=== PATIENT | male | born 1955 | race Caucasian/White ===

== ENCOUNTER 2017-10-02 20:35 | Inpatient (IN) | payer SELFPAY ==
[2017-10-02 20:44] VITALS: BP 233/128; PULSE 76; RESP 16; TEMP 98.1; O2SAT 95
[2017-10-02 20:48] VITALS: BP 233/128; PULSE 75; RESP 16; O2SAT 99
[2017-10-02] MEDS ORDERED: SODIUM CHLORIDE 0.9% FLUSH 10 ML FLUSH IVF PRN (21:45)
[2017-10-02] MEDS ORDERED: cloNIDine HCL 0.1 MG TAB PO ONE (21:45)
[2017-10-02 21:54] VITALS: O2SAT 99
[2017-10-02] MEDS ORDERED: MORPHINE SULFATE 2 MG/ML INJ IV PUSH ONE (22:00)
--- NOTE | 2017-10-02 22:07 | PD ---
HPI Chief Complaint: Headache Time Seen by Provider: 21:21 Travel History International Travel<30 days: No Contact w/Intl Traveler<30days: No Traveled to known affect area: No History of Present Illness HPI 62-year-old otherwise healthy male presents to the emergency room for evaluation of headache that started earlier today. Patient states he believes he may have had food poisoning because he had a can of [place] sausages and then developed headache, nausea, and vomiting. He states headache started fairly quickly. States it is localized to the middle of his head. He reports history of headaches. He had a headache as severe as this one is today one month ago. Patient denies chest pain, shortness breath, abdominal pain, or photophobia. He is not currently nauseous. Headache is worse when he moves his head certain directions. He took ibuprofen with moderate relief in symptoms. He is not prescribed any medications and has not seen a doctor in 11 years. PFSH Past Medical History Diminished Hearing: No Migraines: Yes Tetanus Vaccination: < 5 Years Influenza Vaccination: No ?: Not Past Surgical History Surgical History: No Previous Surgery Social History Alcohol Use: Yes (occasional) Tobacco Use: No Substance Use: No Allergies-Medications (Allergen,Severity, Reaction): Coded Allergies: No Known Allergies (Unverified , 10/02/17) Reported Meds & Prescriptions Reported Meds & Active Scripts Active No Active Prescriptions or Reported Medications Review of Systems Except as stated in HPI: all other systems reviewed are Neg Physical Exam Narrative GENERAL: Well-nourished, well-developed male in no acute distress. Afebrile. Ambulatory. Interacting appropriately and smiling. SKIN: Focused skin assessment warm/dry. HEAD: Normocephalic. EYES: PERRL, EOMI, no discharge or injection. No scleral icterus. NECK: Supple, trachea midline. No JVD or lymphadenopathy. CARDIOVASCULAR: Regular rate and rhythm without murmurs, gallops, or rubs. RESPIRATORY: Breath sounds equal bilaterally. No accessory muscle use. GASTROINTESTINAL: Abdomen soft, non-tender, nondistended. NEUROLOGICAL: Awake and alert. Cranial nerves II through XII intact. Motor and sensory grossly within normal limits. Five out of 5 muscle strength in all muscle groups. Normal speech. No pronator drift in upper or lower extremities. Data Data Last Documented VS Vital Signs Date Time Temp Pulse Resp B/P (MAP) Pulse Ox O2 Delivery O2 Flow Rate FiO2 10/02/17 21:54 99 Room Air 10/02/17 20:48 75 16 10/02/17 20:44 98.1 Orders Orders Prothrombin Time / Inr (Pt) (10/02/17 21:40) Act Partial Throm Time (Ptt) (10/02/17 21:40) Complete Blood Count With Diff (10/02/17 21:40) Comprehensive Metabolic Panel (10/02/17 21:40) Ct Brain W/O Iv Contrast(Rout) (10/02/17 21:40) Ecg Monitoring (10/02/17 21:40) Iv Access Insert/Monitor (10/02/17 21:40) Oximetry (10/02/17 21:40) Sodium Chloride 0.9% Flush (Ns Flush) (10/02/17 21:45) Clonidine (Catapres) (10/02/17 21:45) Morphine Inj (Morphine Inj) (10/02/17 22:00) Labs Laboratory Tests Test 10/02/17 21:40 White Blood Count 10.2 TH/MM3 Red Blood Count 4.92 MIL/MM3 Hemoglobin 15.0 GM/DL Hematocrit 44.4 % Mean Corpuscular Volume 90.2 FL Mean Corpuscular Hemoglobin 30.6 PG Mean Corpuscular Hemoglobin Concent 33.9 % Red Cell Distribution Width 12.9 % Platelet Count 183 TH/MM3 Mean Platelet Volume 10.6 FL Neutrophils (%) (Auto) 70.2 % Lymphocytes (%) (Auto) 19.9 % Monocytes (%) (Auto) 8.1 % Eosinophils (%) (Auto) 0.8 % Basophils (%) (Auto) 1.0 % Neutrophils # (Auto) 7.2 TH/MM3 Lymphocytes # (Auto) 2.0 TH/MM3 Monocytes # (Auto) 0.8 TH/MM3 Eosinophils # (Auto) 0.1 TH/MM3 Basophils # (Auto) 0.1 TH/MM3 CBC Comment DIFF FINAL Differential Comment Prothrombin Time 10.4 SEC Prothromb Time International Ratio 1.0 RATIO Activated Partial Thromboplast Time 24.7 SEC Blood Urea Nitrogen 11 MG/DL Creatinine 0.76 MG/DL Random Glucose 88 MG/DL Total Protein 7.3 GM/DL Albumin 3.8 GM/DL Calcium Level 8.3 MG/DL Alkaline Phosphatase 64 U/L Aspartate Amino Transf (AST/SGOT) 23 U/L Alanine Aminotransferase (ALT/SGPT) 37 U/L Total Bilirubin 1.0 MG/DL Sodium Level 137 MEQ/L Potassium Level 3.9 MEQ/L Chloride Level 105 MEQ/L Carbon Dioxide Level 25.5 MEQ/L Anion Gap 7 MEQ/L Estimat Glomerular Filtration Rate 105 ML/MIN MDM Medical Decision Making Medical Screen Exam Complete: Yes Emergency Medical Condition: Yes Medical Record Reviewed: Yes Differential Diagnosis headache, ICH, hypertensive emergency, hypertensive urgency Narrative Course 62-year-old otherwise healthy male presents to the emergency room for evaluation of moderate to severe headache in the middle of his head that started earlier today. He had associated nausea with one episode of vomiting. Denies chest pain, nausea, or abdominal pain at this time. IV access established and basic labs obtained. Physical exam is reassuring. There are no focal neurological deficits. No pronator drift. Patient is resting comfortably, interacting appropriately. Smiling. Patient was noted to be markedly hypertensive on arrival at 233/128. He was given 0.1 clonidine and pain medication. States he has significant improvement in symptoms. Blood pressure came down to 173/88. CBC and CMP are unremarkable. CT of the brain ordered and pending. Patient signed out to nighttime provider. Diagnosis Primary Impression: Hypertensive emergency Scripts No Active Prescriptions or Reported Meds Condition: Stable Olive Colón Oct 02, 2017 22:07
[2017-10-02 22:18] LABS: AUTOMATED NEUTROPHIL # 7.2 TH/MM3 (1.8-7.7); BASOPHIL # 0.1 TH/MM3 (0-0.2); EOSINOPHIL # 0.1 TH/MM3 (0-0.4); EOSINOPHIL % 0.8 % (0.0-4.0); HEMATOCRIT 44.4 % (39.0-51.0); HEMO FLAGS DIFF FINAL; LYMPH % 19.9 % (9.0-44.0); MEAN CELL VOLUME 90.2 FL (80.0-100.0); MEAN CORPUSCULAR HEMOGLOBIN 30.6 PG (27.0-34.0); MEAN CORPUSCULAR HGB CONC 33.9 % (32.0-36.0); MONO % 8.1 % (0.0-8.0); NEUT % 70.2 % (16.0-70.0); PLATELET COUNT 183 TH/MM3 (150-450); RED BLOOD COUNT 4.92 MIL/MM3 (4.50-5.90); RED CELL DISTRIBUTION WIDTH 12.9 % (11.6-17.2); WHITE BLOOD COUNT 10.2 TH/MM3 (4.0-11.0)
[2017-10-02 22:33] LABS: ALT (GPT) 37 U/L (12-78); ANION GAP 7 MEQ/L (5-15); AST (GOT) 23 U/L (15-37); BICARBONATE 25.5 MEQ/L (21.0-32.0); BLOOD UREA NITROGEN 11 MG/DL (7-18); CHLORIDE 105 MEQ/L (98-107); GLOMERULAR FILTRATION RATE 105 ML/MIN (>89); POTASSIUM 3.9 MEQ/L (3.5-5.1); SODIUM (NA) 137 MEQ/L (136-145)
[2017-10-02 22:34] LABS: APTT (PATIENT) 24.7 SEC (24.3-30.1); PROTHROMBIN TIME - PATIENT 10.4 SEC (9.8-11.6)
[2017-10-02 22:35] LABS: ALKALINE PHOSPHATASE 64 U/L (45-117)
[2017-10-02 23:08] VITALS: BP 162/72; PULSE 78
--- NOTE | 2017-10-02 23:56 | RADRPT ---
EXAM DATE/TIME: 10/02/2017 23:33 [facility] COMPARISON: No previous studies available for comparison. INDICATIONS : Cephalgia. RADIATION DOSE: 56.35 CTDIvol (mGy) MEDICAL HISTORY : None SURGICAL HISTORY : None. ENCOUNTER: Initial ACUITY: 1 day PAIN SCALE: 5/10 LOCATION: Bilateral cranial TECHNIQUE: Multiple contiguous axial images were obtained of the head. Using automated exposure control and adj ustment of the mA and/or kV according to patient size, radiation dose was kept as low as reasonably a chievable to obtain optimal diagnostic quality images. DICOM format image data is available electro nically for review and comparison. FINDINGS: CEREBRUM: The ventricles are normal for age. There is a patent cavum septum pellucidum. No evidence of midline shift, mass lesion, hemorrhage or acute infarction. No extra-axial fluid collections are seen. POSTERIOR FOSSA: The cerebellum and brainstem are intact. The 4th ventricle is midline. The cerebellopontine angle i s unremarkable. EXTRACRANIAL: The visualized portion of the orbits is intact. SKULL: The calvaria is intact. No evidence of skull fracture. CONCLUSION: No acute disease. Mor Arevalo MD on October 02, 2017 at 23:54 Board Certified Radiologist. This report was verified electronically.
[2017-10-03] VITALS (10 sets, daily range): BP systolic 150–212; BP diastolic 82–116; PULSE 60–72; RESP 18–20; TEMP 97.6–98.4; O2SAT 96–98
--- NOTE | 2017-10-03 00:17 | PD ---
Physical Exam Narrative General: The patient is a well-developed well-nourished male in no acute distress. Head and Neck exam: Head is normocephalic atraumatic. Eyes: EOMI, pupils are equal round and reactive to light. Nose: Midline septum with pink mucous membranes Mouth: Dentition unremarkable. Moist mucus membranes. Posterior oropharynx is not erythematous. No tonsillar hypertrophy. Uvula midline. Airway patent. Neck: No palpable lymphadenopathy. No nuchal rigidity. No thyromegaly. Negative Brudzinski, negative Kernig sign. Cardiovascular: Regular rate and rhythm with a 2/6 systolic murmur, no gallops or rubs. No pulse deficit to the extremities on simultaneous auscultation and palpation of his radial artery. Lungs: Clear to auscultation bilaterally. No wheezes, rhonchi, or rales. Abdomen: Soft, without tenderness to palpation in all 4 quadrants of the abdomen. No guarding, rebound, or rigidity. Normal bowel sounds are audible. No tenderness on palpation of McBurney's point. Negative Martinez's sign. Extremities: No clubbing, cyanosis, or edema. 2+ pulses in all 4 extremities. No calf tenderness on palpation. Back: No spinous process tenderness to palpation. No costovertebral angle tenderness to palpation. Neurologic Exam: Cranial nerves 2-12 were intact on exam. Strength is 5/5 in all 4 extremities. No sensory deficits noted. Skin Exam: No rash noted. Intact skin that is warm and dry. Data Data Last Documented VS Vital Signs Date Time Temp Pulse Resp B/P (MAP) Pulse Ox O2 Delivery O2 Flow Rate FiO2 10/02/17 23:08 78 162/72 (102) 10/02/17 21:54 99 Room Air 10/02/17 20:48 16 10/02/17 20:44 98.1 Orders Orders Prothrombin Time / Inr (Pt) (10/02/17 21:40) Act Partial Throm Time (Ptt) (10/02/17 21:40) Complete Blood Count With Diff (10/02/17 21:40) Comprehensive Metabolic Panel (10/02/17 21:40) Ct Brain W/O Iv Contrast(Rout) (10/02/17 21:40) Ecg Monitoring (10/02/17 21:40) Iv Access Insert/Monitor (10/02/17 21:40) Oximetry (10/02/17 21:40) Sodium Chloride 0.9% Flush (Ns Flush) (10/02/17 21:45) Clonidine (Catapres) (10/02/17 21:45) Morphine Inj (Morphine Inj) (10/02/17 22:00) Sodium Chlor 0.9% 1000 Ml Inj (Ns 1000 M (10/03/17 00:30) Ondansetron Inj (Zofran Inj) (10/03/17 00:30) Electrocardiogram (10/03/17 00:39) Creatine Kinase (Cpk) (10/03/17 00:39) Ckmb (Isoenzyme) Profile (10/03/17 00:39) Troponin I (10/03/17 00:39) B-Type Natriuretic Peptide (10/03/17 00:39) Chest, Single Ap (10/03/17 00:39) Sodium Chlorid 0.9% 500 Ml Inj (Ns 500 M (10/03/17 00:45) Labetalol Inj (Trandate Inj) (10/03/17 00:45) Admit Order (Ed Use Only) (10/03/17 00:45) CKMB (10/02/17 21:40) CKMB% (10/02/17 21:40) Labs Laboratory Tests Test 10/02/17 21:40 White Blood Count 10.2 TH/MM3 Red Blood Count 4.92 MIL/MM3 Hemoglobin 15.0 GM/DL Hematocrit 44.4 % Mean Corpuscular Volume 90.2 FL Mean Corpuscular Hemoglobin 30.6 PG Mean Corpuscular Hemoglobin Concent 33.9 % Red Cell Distribution Width 12.9 % Platelet Count 183 TH/MM3 Mean Platelet Volume 10.6 FL Neutrophils (%) (Auto) 70.2 % Lymphocytes (%) (Auto) 19.9 % Monocytes (%) (Auto) 8.1 % Eosinophils (%) (Auto) 0.8 % Basophils (%) (Auto) 1.0 % Neutrophils # (Auto) 7.2 TH/MM3 Lymphocytes # (Auto) 2.0 TH/MM3 Monocytes # (Auto) 0.8 TH/MM3 Eosinophils # (Auto) 0.1 TH/MM3 Basophils # (Auto) 0.1 TH/MM3 CBC Comment DIFF FINAL Differential Comment Prothrombin Time 10.4 SEC Prothromb Time International Ratio 1.0 RATIO Activated Partial Thromboplast Time 24.7 SEC Blood Urea Nitrogen 11 MG/DL Creatinine 0.76 MG/DL Random Glucose 88 MG/DL Total Protein 7.3 GM/DL Albumin 3.8 GM/DL Calcium Level 8.3 MG/DL Alkaline Phosphatase 64 U/L Aspartate Amino Transf (AST/SGOT) 23 U/L Alanine Aminotransferase (ALT/SGPT) 37 U/L Total Bilirubin 1.0 MG/DL Sodium Level 137 MEQ/L Potassium Level 3.9 MEQ/L Chloride Level 105 MEQ/L Carbon Dioxide Level 25.5 MEQ/L Anion Gap 7 MEQ/L Estimat Glomerular Filtration Rate 105 ML/MIN Total Creatine Kinase 185 U/L Troponin I LESS THAN 0.02 NG/ML MDM Medical Record Reviewed: Yes Supervised Visit with ROBINSON: No Interpretation(s) Last Impressions Chest X-Ray 10/03/17 0039 Signed Impressions: Service Date/Time: Tuesday, October 03, 2017 00:49 - CONCLUSION: No acute disease. Mor Arevalo MD Head CT 10/02/170 Signed Impressions: Service Date/Time: Monday, October 02, 2017 23:33 - CONCLUSION: No acute disease. Mor Arevalo MD Narrative Course During the course of the patients emergency department visit, the patients history, examination, and differential diagnosis were reviewed with the patient. The patient was placed on a manager cardiac with oximetry and frequent blood pressure monitoring. The patient had IV access obtained and blood work sent for analysis. The patient was initially evaluated by Olive, the physician architectural administrative assistant. Please see her complete history and physical. The patient's case was checked out to me at the conclusion of her shift pending CT scan results. The patient reports a history of headache that has been coming and going for the last month. He reports that it was severe one month ago and he thought it was related to sinus pressure. He reports that intermittently since then he has been taking [id number] sinus medicine approximate twice a week. He denies having any purulent nasal discharge. He denies having any fevers or chills. He denies having any neck pain. The patient reports that earlier today he began to feel poorly, associated with a headache over the top of his head. He reports that he felt nausea and then vomited. He reports that he felt confused. He reports that he also had generalized weakness. His girlfriend then called ambulance services for him. The patient arrives with a systolic blood pressure in the 230s. The patient reports that since summer he has had dyspnea on exertion. He denies any known prior history of heart murmur. The patient was initially provided morphine for pain 2 mg IV, clonidine 0.1 by mouth 1. The patients laboratory studies were reviewed and remarkable for a white count of 10.2, hemoglobin 15, platelets 183 was 70.2 neutrophils, monocytes 8.1. CMP is remarkable for a calcium of 8.3, PT PTT within normal limits. Radiology studies were reviewed and remarkable for a CT scan of the brain shows no acute abnormality. The patient continued to be hypertensive, initially his blood pressure did go down to the 160s, however it began to rebound into the 170s. The patient was given labetalol 10 mg IV. Given the patient's new heart murmur noted on examination and reported dyspnea on exertion since summer time, the patient had cardiac enzymes ordered, ECG ordered and a chest x-ray ordered. An ECG shows a sinus rhythm of 61, borderline left axis deviation, left ventricular hypertrophy by voltage, QRS duration is 91 ms, QTC [address] segment elevation. Chest x-ray showed no acute cardiopulmonary disease , CPK within normal limits at 185, troponin I less than 0.02. The patient will be admitted to the hospital for Hypertensive urgency, new cardiac murmur, Dyspnea on exertion. The patients results were discussed with the patient, including the plan of care. I explained that further testing and/ or monitoring is indicated based on the patients history, examination, and/ or laboratory findings. Therefore, I recommended admission for additional evaluation. The patient expressed understanding and was agreeable with this plan. The patient was admitted to the hospital in stable condition and sent to a bed under the care of [facility] service. Physician Communication Physician Communication The patient's case including history, pertinent physical examination findings, and laboratory studies were discussed with Dr. Beach. It was agreed that the patient would be admitted to the [facility] service. Diagnosis Primary Impression: Hypertensive encephalopathy Additional Impressions: Newly recognized heart murmur Uncontrolled hypertension Admitting Information Admitting Physician Requests: Admit Scripts No Active Prescriptions or Reported Meds Condition: Stable Flower Joyce MD Oct 03, 2017 00:17
[2017-10-03] MEDS ORDERED: ONDANSETRON HCL 4 MG/2 ML VIAL IV ONE (00:30)
[2017-10-03] MEDS ORDERED: SODIUM CHLOR 0.9% 1000 ML INJ 1,000 ML IV ONE (00:30)
[2017-10-03] MEDS ORDERED: SODIUM CHLORID 0.9% 500 ML INJ 500 ML IV ONE (00:45)
[2017-10-03] MEDS ORDERED: LABETALOL HCL 100 MG/20 ML VIAL IV PUSH ONE (00:45)
--- NOTE | 2017-10-03 01:05 | RADRPT ---
EXAM DATE/TIME: 10/03/2017 00:49 [facility] COMPARISON: No previous studies available for comparison. INDICATIONS : Shortness of breath. MEDICAL HISTORY : None. SURGICAL HISTORY : None. ENCOUNTER: Initial ACUITY: 1 day PAIN SCORE: 0/10 LOCATION: Bilateral chest FINDINGS: A single view of the chest demonstrates the lungs to be symmetrically aerated without evidence of mas s, infiltrate or effusion. The cardiomediastinal contours are unremarkable. Osseous structures are intact. CONCLUSION: No acute disease. Mor Arevalo MD on October 03, 2017 at 1:04 Board Certified Radiologist. This report was verified electronically.
[2017-10-03] MEDS ORDERED: BISACODYL 10 MG SUPP RECTAL PRN (01:30)
[2017-10-03] MEDS ORDERED: NALOXONE HCL 0.4 MG/ML AMP IV PUSH PRN (01:30)
[2017-10-03] MEDS ORDERED: SENNOSIDES 8.6 MG TAB PO PRN (01:30)
[2017-10-03] MEDS ORDERED: MAGNESIUM HYDROXIDE SUSP 30 ML CUP PO PRN (01:30)
[2017-10-03] MEDS ORDERED: LACTULOSE SYRUP 20 GM/30 ML CUP PO PRN (01:30)
[2017-10-03] MEDS ORDERED: ACETAMINOPHEN 325 MG TAB PO PRN (01:30)
[2017-10-03] MEDS ORDERED: SODIUM CHLORIDE 0.9% FLUSH 10 ML FLUSH IV FLUSH PRN (01:30)
[2017-10-03] MEDS ORDERED: ONDANSETRON HCL 4 MG/2 ML VIAL IVP PRN (01:30)
[2017-10-03 01:49] LABS: CREATINE KINASE 185 U/L (39-308)
[2017-10-03 02:01] LABS: CKMB 3.7 NG/ML (0.5-3.6)
[2017-10-03] MEDS: cloNIDine HCL 0.1 MG TAB PO PRN ×3 (03:45→23:41)
[2017-10-03] MEDS: DOCUSATE SODIUM 50 MG/SENNA 8.6 MG TAB PO SCH ×2 (08:16→20:57)
[2017-10-03] MEDS: SODIUM CHLORIDE 0.9% FLUSH 10 ML FLUSH IV FLUSH SCH ×2 (08:19→20:57)
[2017-10-03 08:29] LABS: AUTOMATED NEUTROPHIL # 4.6 TH/MM3 (1.8-7.7); BASOPHIL # 0.1 TH/MM3 (0-0.2); BASOPHIL % 1.1 % (0.0-2.0); EOSINOPHIL # 0.2 TH/MM3 (0-0.4); EOSINOPHIL % 3.3 % (0.0-4.0); HEMATOCRIT 41.3 % (39.0-51.0); HEMO FLAGS DIFF FINAL; LYMPH % 24.2 % (9.0-44.0); LYMPHOCYTE # 1.8 TH/MM3 (1.0-4.8); MEAN CELL VOLUME 90.8 FL (80.0-100.0); MEAN CORPUSCULAR HEMOGLOBIN 31.2 PG (27.0-34.0); MEAN CORPUSCULAR HGB CONC 34.4 % (32.0-36.0); MONO % 10.1 % (0.0-8.0); NEUT % 61.3 % (16.0-70.0); PLATELET COUNT 199 TH/MM3 (150-450); RED BLOOD COUNT 4.55 MIL/MM3 (4.50-5.90); RED CELL DISTRIBUTION WIDTH 12.9 % (11.6-17.2); WHITE BLOOD COUNT 7.4 TH/MM3 (4.0-11.0)
[2017-10-03 08:40] LABS: BICARBONATE 29.9 MEQ/L (21.0-32.0); POTASSIUM 3.9 MEQ/L (3.5-5.1)
[2017-10-03] MEDS ORDERED: amLODIPine BESYLATE 5 MG TAB PO SCH (09:00)
--- NOTE | 2017-10-03 12:33 | EKG ---
Date Performed: 10/03/2017 Time Performed: 01:47:09 PTAGE: 62 years EKG: Sinus rhythm BORDERLINE LEFT AXIS DEVIATION LEFT VENTRICULAR HYPERTROPHY AND ST-T CHANGE ABNORMAL ECG NO PREVIOUS TRACING DOCTOR: Andrew Neves Interpretating Date/Time 10/03/2017 12:32:43
[2017-10-03] MEDS: LOSARTAN 50 MG TAB PO SCH (15:28)
--- NOTE | 2017-10-03 16:44 | HHI.HP ---
[facility] Service [facility] Primary Care Physician No Primary Care Physician Admission Diagnosis Hypertensive encephalopathy, new cardiac murmur, Dyspnea on exertion Diagnoses: (1) Hypertensive emergency Diagnosis: Principal (2) Uncontrolled hypertension (3) Newly recognized heart murmur Travel History International Travel<30 Days: No Contact w/Intl Traveler <30 Da: No Traveled to Known Affected Are: No History of Present Illness 62M with a history of HTN presented to the ER after onset of intractable headaches at home. In the ER he had SBP of 233 on admission. As BP improved, so did his headaches. He denies any previous episodes of extremely high BP, but does admit he has not followed up with an MD for the past 5+ years, and he admits he had some sausage links prior to this episode. He has a heart murmur that he was unaware of, but denies any chest pain or dyspnea, denies any history of ankle swelling. Review of Systems Constitutional: DENIES: Fatigue, Fever, Weight gain, Weight loss Endocrine: DENIES: Heat/cold intolerance, Polydipsia, Polyuria Eyes: DENIES: Blurred vision, Diplopia Ears, nose, mouth, throat: DENIES: Tinnitus, Hearing loss Respiratory: COMPLAINS OF: Apneas, Snoring, DENIES: Wheezing, Hemoptysis Cardiovascular: DENIES: Chest pain, Palpitations, Syncope, Dyspnea on Exertion Gastrointestinal: DENIES: Abdominal pain, Black stools, Bloody stools Musculoskeletal: DENIES: Joint pain, Muscle aches, Stiffness Hematologic/lymphatic: DENIES: Lymphadenopathy Immunologic/allergic: DENIES: Urticaria Neurologic: COMPLAINS OF: Headache, DENIES: Abnormal gait, Localized weakness, Paresthesias, Seizures, Poor Balance Psychiatric: DENIES: Anxiety, Depression Past Family Social History Past Medical History Hypertension, Erectile dysfunction Past Surgical History none Allergies: Coded Allergies: No Known Allergies (Unverified , 10/02/17) Family History CAD, CKD Social History Quit smoking 35 years ago Physical Exam Vital Signs Vital Signs Date Time Temp Pulse Resp B/P (MAP) Pulse Ox O2 Delivery O2 Flow Rate FiO2 10/03/17 16:00 98.4 71 18 175/99 (124) 96 10/03/17 12:00 98.3 68 18 169/103 (125) 96 10/03/17 08:00 98.0 63 18 163/94 (117) 97 10/03/17 05:58 175/99 (124) 10/03/17 04:00 97.6 63 18 212/116 (148) 98 10/03/17 03:56 10/03/17 02:33 60 161/95 (117) 10/02/17 23:08 78 162/72 (102) 10/02/17 21:54 99 Room Air 10/02/17 20:48 75 16 233/128 (163) 99 Room Air 10/02/17 20:48 16 99 Room Air 10/02/17 20:44 98.1 76 16 233/128 (163) 95 Physical Exam GENERAL: This is a well-nourished, well-developed patient, in no apparent distress. SKIN: No rashes, ecchymoses or lesions. Cool and dry. HEAD: Atraumatic. Normocephalic. No temporal or scalp tenderness. EYES: Pupils equal round and reactive. Extraocular motions intact. No scleral icterus. No injection or drainage. ENT: Nose without bleeding, purulent drainage or septal hematoma. Throat without erythema, tonsillar hypertrophy or exudate. Uvula midline. Airway patent. NECK: Trachea midline. No JVD or lymphadenopathy. Supple, nontender, no meningeal signs. CARDIOVASCULAR: Regular rate and rhythm, 2/6 systolic murmur, no gallops, or rubs. RESPIRATORY: Clear to auscultation. Breath sounds equal bilaterally. No wheezes , rales, or rhonchi. GASTROINTESTINAL: Abdomen soft, non-tender, nondistended. No hepato-splenomegaly , or palpable masses. No guarding. MUSCULOSKELETAL: Extremities without clubbing, cyanosis, or edema. No joint tenderness, effusion, or edema noted. No calf tenderness. Negative Homans sign bilaterally. NEUROLOGICAL: Awake and alert. Cranial nerves II through XII intact. Motor and sensory grossly within normal limits. Five out of 5 muscle strength in all muscle groups. Normal speech. Laboratory Laboratory Tests Test 10/02/17 21:40 10/03/17 07:16 White Blood Count 10.2 7.4 Red Blood Count 4.92 4.55 Hemoglobin 15.0 14.2 Hematocrit 44.4 41.3 Mean Corpuscular Volume 90.2 90.8 Mean Corpuscular Hemoglobin 30.6 31.2 Mean Corpuscular Hemoglobin Concent 33.9 34.4 Red Cell Distribution Width 12.9 12.9 Platelet Count 183 199 Mean Platelet Volume 10.6 9.7 Neutrophils (%) (Auto) 70.2 61.3 Lymphocytes (%) (Auto) 19.9 24.2 Monocytes (%) (Auto) 8.1 10.1 Eosinophils (%) (Auto) 0.8 3.3 Basophils (%) (Auto) 1.0 1.1 Neutrophils # (Auto) 7.2 4.6 Lymphocytes # (Auto) 2.0 1.8 Monocytes # (Auto) 0.8 0.8 Eosinophils # (Auto) 0.1 0.2 Basophils # (Auto) 0.1 0.1 CBC Comment DIFF FINAL DIFF FINAL Differential Comment Prothrombin Time 10.4 Prothromb Time International Ratio 1.0 Activated Partial Thromboplast Time 24.7 Blood Urea Nitrogen 11 12 Creatinine 0.76 0.91 Random Glucose 88 95 Total Protein 7.3 Albumin 3.8 Calcium Level 8.3 8.4 Alkaline Phosphatase 64 Aspartate Amino Transf (AST/SGOT) 23 Alanine Aminotransferase (ALT/SGPT) 37 Total Bilirubin 1.0 Sodium Level 137 138 Potassium Level 3.9 3.9 Chloride Level 105 103 Carbon Dioxide Level 25.5 29.9 Anion Gap 7 5 Estimat Glomerular Filtration Rate 105 85 Total Creatine Kinase 185 Creatine Kinase MB 3.7 Troponin I LESS THAN 0.02 B-Type Natriuretic Peptide 65 Result Diagram: 10/03/17 0716 10/03/17 0716 Imaging Last Impressions Chest X-Ray 10/03/17 0039 Signed Impressions: Service Date/Time: Tuesday, October 03, 2017 00:49 - CONCLUSION: No acute disease. Mor Arevalo MD Head CT [id number]/02/[id number] Signed Impressions: Service Date/Time: Monday, October 02, 2017 23:33 - CONCLUSION: No acute disease. MD Angelito Craini VTE Risk Assessment Caprini VTE Risk Assessment: Mod/High Risk (score >= 2) Caprini Risk Assessment Model Point Value = 1 Point Value = 2 Point Value = 3 Point Value = 5 Age 41-60 Minor surgery BMI > 25 kg/m2 Swollen legs Varicose veins or History of unexplained or recurrent spontaneous Oral contraceptives or hormone replacement Sepsis (< 1 month) Serious lung disease, including pneumonia (< 1 month) Abnormal pulmonary function Acute myocardial infarction Congestive heart failure (< 1 month) History of inflammatory bowel disease Medical patient at bed rest Age 61-74 Arthroscopic surgery Major open surgery (> 45 min) Laparoscopic surgery (> 45 min) Malignancy Confined to bed (> 72 hours) Immobilizing plaster cast Central venous access Age >= 75 History of VTE Family history of VTE Factor V Leiden Prothrombin [id number] Lupus anticoagulant Anticardiolipin antibodies Elevated serum homocysteine Heparin-induced thrombocytopenia Other congenital or acquired thrombophilia Stroke (< 1 month) Elective arthroplasty Hip, pelvis, or leg fracture Acute spinal cord injury (< 1 month) Prophylaxis Regimen Total Risk Factor Score Risk Level Prophylaxis Regimen 0-1 Low Early ambulation 2 Moderate Order ONE of the following: *Sequential Compression Device (SCD) *Heparin 5000 units SQ BID 3-4 Higher Order ONE of the following medications: *Heparin 5000 units SQ TID *Enoxaparin/Lovenox 40 mg SQ daily (WT < 150 kg, CrCl > 30 mL/min) *Enoxaparin/Lovenox 30 mg SQ daily (WT < 150 kg, CrCl > 10-29 mL/min) *Enoxaparin/Lovenox 30 mg SQ BID (WT < 150 kg, CrCl > 30 mL/min) AND/OR *Sequential Compression Device (SCD) 5 or more Highest Order ONE of the following medications: *Heparin 5000 units SQ TID (Preferred with Epidurals) *Enoxaparin/Lovenox 40 mg SQ daily (WT < 150 kg, CrCl > 30 mL/min) *Enoxaparin/Lovenox 30 mg SQ daily (WT < 150 kg, CrCl > 10-29 mL/min) *Enoxaparin/Lovenox 30 mg SQ BID (WT < 150 kg, CrCl > 30 mL/min) AND *Sequential Compression Device (SCD) Assessment and Plan Problem List: (1) Hypertensive emergency ICD Code: I16.1 - Hypertensive emergency Status: Acute (2) Uncontrolled hypertension ICD Code: I10 - Essential (primary) hypertension Status: Acute (3) Newly recognized heart murmur ICD Code: R01.1 - Cardiac murmur, unspecified Status: Acute Assessment and Plan Hypertensive Emergency - Headache improved after SBP of 233 brought down in the ER - Today his BP is hovering around 170 on Amlodipine and prn clonidine - Add Losartan 50mg daily - Consult cardiology to rule out cardiac compensatory causes of this elevation Uncontrolled Hypertension - So far not responding well to Amlodipine and clonidine - Losartan added New Heart Murmur - ECHO ordered - Cardiology consult DVT Prophylaxis - Lovenox Code Status Full Code Physician Certification 2 Midnight Certification Type: Admission for Inpatient Services Order for Inpatient Services The services are ordered in accordance with Medicare regulations or non- Medicare payer requirements, as applicable. In the case of services not specified as inpatient-only, they are appropriately provided as inpatient services in accordance with the 2-midnight benchmark. Estimated LOS (days): 2 days is the estimated time the patient will need to remain in the hospital, assuming treatment plan goals are met and no additional complications. Post-Hospital Plan: Home Johnnie Schwartz MD Oct 03, 2017 16:44
[2017-10-03] MEDS ORDERED: ENOXAPARIN SODIUM 40 MG/0.4 ML SYRINGE SQ SCH (18:00)
--- NOTE | 2017-10-03 20:41 | MB ---
cc: NATE ROMAN DO DATE OF CONSULTATION: 10/03/2017 REASON FOR CONSULTATION: Accelerated hypertension, hypertensive urgency. HISTORY OF PRESENT ILLNESS Hernandez Cornejo is a pleasant 62-year-old male who presented to [facility] emergency room on October 03, 2017 due to a headache. He states that he recently started getting a headache and was taken ibuprofen for a number of days. When it would not go away, he finally presented to the emergency room and was found to have a systolic blood pressure of 230 on admission. Blood pressure was improved and so with this did his headaches. He previously had a history of high blood pressure and as on a few medications for which the patient does not remember but then asked his doctor during a physical if he needed this anymore and the doctor told him no. He denies any chest pain, shortness of breath, nausea or vomiting. PAST MEDICAL HISTORY: 1. Hypertension. 2. Erectile dysfunction. PAST SURGICAL HISTORY: Denies ALLERGIES: NO KNOWN DRUG ALLERGIES. MEDICATIONS: Denies FAMILY HISTORY: Known for coronary artery disease but denies sudden cardiac within the family. SOCIAL HISTORY: The patient previously smoked but quit 35 years ago. Denies alcohol or drug abuse. PHYSICAL EXAMINATION: VITAL SIGNS: Temperature 98.3, heart rate 68, blood pressure 169/100, respirations 18, pulse ox 96% on room air. GENERAL: The patient appears well, in no acute distress. Alert, awake, oriented x3. Extraocular muscles intact. Moist mucous membranes. NECK: Supple. No JVD at 45 degrees. No carotid bruits heard bilaterally. Carotid upstrokes brisk in nature. HEART: Regular rate and rhythm, positive first and second heart sounds with a 1/6 holosystolic murmur noted at the apex. LUNGS: Clear to auscultation bilaterally. No rales, rhonchi or wheezing. ABDOMEN: Soft, non-tender, non-distended. No organomegaly. EXTREMITIES: No clubbing, cyanosis or edema. Femoral and distal pulses intact bilaterally. NEUROLOGIC: No focal deficits. SKIN: Warm, dry and intact. OSTEOPATHIC: No kyphoscoliosis, lordosis or paraspinal tender points. LABORATORY WORK: Hemoglobin 14.2, hematocrit 41.3, platelets 199. Potassium 3.9, BUN 12, creatinine 0.91, troponin less than 0.02. BNP 65. Electrocardiogram (October 03, 2017 at 01:47) sinus rhythm, borderline left axis deviation, LVH with secondary ST-T wave changes. IMPRESSION 1. Accelerated hypertension / hypertensive urgency. 2. Headache most likely due to hypertension. 3. New heart murmur. RECOMMENDATIONS 1. Mr. Cornejo presented with hypertensive urgency with a systolic blood pressure of 230. This is most likely due to underlying long-term hypertension but also his use of ibuprofen. 2. I have asked him to avoid all NSAIDs due to his overall hypertension. 3. Will check a 2-D echo to look at his overall left ventricular function, cardiac structure and possible valopathies. 4. Agree with starting him on Norvasc and losartan. 5. At this time we have dropped his systolic blood pressure around 25% over the first 24 hours and would not push it at this moment as this could cause ischemia. Will continue to titrate medicines but I did discuss with him that he needs to find either a primary care physician or ribbon inker, outpatient to further titrate meds outpatient for the long-term blood pressure goals. Further recommendations will be made based on the hospital course. Thank you for allowing me to see Hernandez Cornejo. If there are any questions, please do not hesitate to call. Nate Roman DO VGP/UMAIR /7:09 PM /8:25 PM
[2017-10-04] VITALS (7 sets, daily range): BP systolic 147–206; BP diastolic 87–113; PULSE 58–82; RESP 19–20; TEMP 97.5–98.9; O2SAT 97–98
[2017-10-04] MEDS ORDERED: amLODIPine BESYLATE 5 MG TAB PO SCH ×3 (05:00→09:00)
[2017-10-04] MEDS ORDERED: MORPHINE SULFATE 2 MG/ML INJ IV PUSH ONE (06:30)
[2017-10-04] MEDS: cloNIDine HCL 0.1 MG TAB PO PRN (07:00)
[2017-10-04] MEDS: LOSARTAN 50 MG TAB PO SCH (08:58)
[2017-10-04] MEDS: DOCUSATE SODIUM 50 MG/SENNA 8.6 MG TAB PO SCH (08:59)
[2017-10-04] MEDS: SODIUM CHLORIDE 0.9% FLUSH 10 ML FLUSH IV FLUSH SCH (09:00)
--- NOTE | 2017-10-04 09:07 | HHI.PR ---
Subjective Remarks Patient says he feels well today. Denies any chest pain or shortness of breath. Objective Vital Signs Date Time Temp Pulse Resp B/P (MAP) Pulse Ox O2 Delivery O2 Flow Rate FiO2 10/04/17 08:14 98.9 69 20 206/113 (144) 98 10/04/17 06:19 67 197/104 (135) 10/04/17 04:18 98.6 58 19 180/101 (127) 98 10/04/17 04:00 97.5 64 20 153/90 (111) 97 10/04/17 01:08 147/87 (107) 10/03/17 23:26 98.0 64 20 165/93 (117) 97 10/03/17 22:58 63 10/03/17 20:27 72 10/03/17 20:00 98.1 66 20 150/82 (104) 97 10/03/17 16:00 98.4 71 18 175/99 (124) 96 10/03/17 12:00 98.3 68 18 169/103 (125) 96 I/O 10/03/17 10/03/17 10/03/17 10/04/17 10/04/17 10/04/17 07:00 15:00 23:00 07:00 15:00 23:00 Intake Total 720 ml 420 ml Output Total 500 ml Balance 720 ml -80 ml Intake Oral 720 ml 420 ml Output Urine Total 500 ml # Voids 2 4 # Bowel Movements 0 0 Result Diagram: 10/03/17 0716 10/03/17 0716 Objective Remarks GENERAL: Patient sitting up in bed. Appears couple. Alert and oriented 3. SKIN: Warm and dry. HEAD: Normocephalic. EYES: No scleral icterus. No injection or drainage. NECK: Supple, trachea midline. No JVD. CARDIOVASCULAR: Regular rate and rhythm without murmurs, gallops, or rubs. RESPIRATORY: Breath sounds equal bilaterally. No accessory muscle use. GASTROINTESTINAL: Abdomen soft, non-tender, nondistended. MUSCULOSKELETAL: No cyanosis, or edema. BACK: Nontender without obvious deformity. No CVA tenderness. A/P Assessment and Plan Patient says he feels well today. Denies any chest pain or shortness of breath. Discharge Planning The discharge this afternoon if blood pressure improved. Echo pending Shaji Kim MD Oct 04, 2017 09:07
[2017-10-04] MEDS ORDERED: HYDROCHLOROTHIAZIDE 12.5 MG CAP PO ONE (09:30)
--- NOTE | 2017-10-04 11:57 | PD.CARD.PN ---
Subjective Subjective Remarks No chest pain/SOB/MCKEON Objective Medications Current Medications Medications (Trade) Dose Ordered Sig/Javier Route Start Time Stop Time Status Last Admin (NS Flush) 2 ml UNSCH PRN IV FLUSH 10/03/17 01:30 (NS Flush) 2 ml BID IV FLUSH 10/03/17 09:00 10/04/17 09:00 (Tylenol) 650 mg Q4H PRN PO 10/03/17 01:30 (Zofran Inj) 4 mg Q6H PRN IVP 10/03/17 01:30 (Narcan Inj) 0.4 mg UNSCH PRN IV PUSH 10/03/17 01:30 (Britta-Colace) 1 tab BID PO 10/03/17 09:00 10/03/17 08:16 (Milk Of Magnesia Liq) 30 ml Q12H PRN PO 10/03/17 01:30 (Senokot) 17.2 mg Q12H PRN PO 10/03/17 01:30 (Dulcolax Supp) 10 mg DAILY PRN RECTAL 10/03/17 01:30 (Lactulose Liq) 30 ml DAILY PRN PO 10/03/17 01:30 (Catapres) 0.1 mg Q6H PRN PO 10/03/17 01:30 10/04/17 07:00 (Cozaar) 50 mg DAILY PO 10/03/17 15:00 10/04/17 08:58 (Lovenox Inj) 40 mg Q24H SQ 10/03/17 18:00 10/03/17 18:56 (Norvasc) 10 mg DAILY PO 10/04/17 09:00 10/04/17 08:58 (Microzide) 12.5 mg DAILY PO 10/05/17 09:00 Vital Signs / I&O Vital Signs Date Time Temp Pulse Resp B/P (MAP) Pulse Ox O2 Delivery O2 Flow Rate FiO2 10/04/17 08:14 98.9 69 20 206/113 (144) 98 10/04/17 06:19 67 197/104 (135) 10/04/17 04:18 98.6 58 19 180/101 (127) 98 10/04/17 04:00 97.5 64 20 153/90 (111) 97 10/04/17 01:08 147/87 (107) 10/03/17 23:26 98.0 64 20 165/93 (117) 97 10/03/17 22:58 63 10/03/17 20:27 72 10/03/17 20:00 98.1 66 20 150/82 (104) 97 10/03/17 16:00 98.4 71 18 175/99 (124) 96 10/03/17 12:00 98.3 68 18 169/103 (125) 96 I/O 10/03/17 10/03/17 10/03/17 10/04/17 10/04/17 10/04/17 07:00 15:00 23:00 07:00 15:00 23:00 Intake Total 720 ml 420 ml Output Total 500 ml Balance 720 ml -80 ml Intake Oral 720 ml 420 ml Output Urine Total 500 ml # Voids 2 4 # Bowel Movements 0 0 Physical Exam GENERAL: NAD, AAOx3 SKIN: Warm and dry. HEAD: Atraumatic. Normocephalic. EYES: Pupils equal and round. No scleral icterus. No injection or drainage. ENT: No nasal bleeding or discharge. Mucous membranes pink and moist. NECK: Trachea midline. No JVD. CARDIOVASCULAR: Regular rate and rhythm. 1/6 crescendo-decrescendo murmur to the RSB RESPIRATORY: No accessory muscle use. Clear to auscultation. Breath sounds equal bilaterally. GASTROINTESTINAL: Abdomen soft, non-tender, nondistended. Hepatic and splenic margins not palpable. MUSCULOSKELETAL: Extremities without clubbing, cyanosis, or edema. No obvious deformities. NEUROLOGICAL: Awake and alert. No obvious cranial nerve deficits. Motor grossly within normal limits. Five out of 5 muscle strength in the arms and legs. Normal speech. PSYCHIATRIC: Appropriate mood and affect; insight and judgment normal. Laboratory Laboratory Tests Test 10/02/17 21:40 10/03/17 07:16 White Blood Count 10.2 TH/MM3 (4.0-11.0) 7.4 TH/MM3 (4.0-11.0) Red Blood Count 4.92 MIL/MM3 (4.50-5.90) 4.55 MIL/MM3 (4.50-5.90) Hemoglobin 15.0 GM/DL (13.0-17.0) 14.2 GM/DL (13.0-17.0) Hematocrit 44.4 % (39.0-51.0) 41.3 % (39.0-51.0) Mean Corpuscular Volume 90.2 FL (80.0-100.0) 90.8 FL (80.0-100.0) Mean Corpuscular Hemoglobin 30.6 PG (27.0-34.0) 31.2 PG (27.0-34.0) Mean Corpuscular Hemoglobin Concent 33.9 % (32.0-36.0) 34.4 % (32.0-36.0) Red Cell Distribution Width 12.9 % (11.6-17.2) 12.9 % (11.6-17.2) Platelet Count 183 TH/MM3 (150-450) 199 TH/MM3 (150-450) Mean Platelet Volume 10.6 FL (7.0-11.0) 9.7 FL (7.0-11.0) Neutrophils (%) (Auto) 70.2 % (16.0-70.0) 61.3 % (16.0-70.0) Lymphocytes (%) (Auto) 19.9 % (9.0-44.0) 24.2 % (9.0-44.0) Monocytes (%) (Auto) 8.1 % (0.0-8.0) 10.1 % (0.0-8.0) Eosinophils (%) (Auto) 0.8 % (0.0-4.0) 3.3 % (0.0-4.0) Basophils (%) (Auto) 1.0 % (0.0-2.0) 1.1 % (0.0-2.0) Neutrophils # (Auto) 7.2 TH/MM3 (1.8-7.7) 4.6 TH/MM3 (1.8-7.7) Lymphocytes # (Auto) 2.0 TH/MM3 (1.0-4.8) 1.8 TH/MM3 (1.0-4.8) Monocytes # (Auto) 0.8 TH/MM3 (0-0.9) 0.8 TH/MM3 (0-0.9) Eosinophils # (Auto) 0.1 TH/MM3 (0-0.4) 0.2 TH/MM3 (0-0.4) Basophils # (Auto) 0.1 TH/MM3 (0-0.2) 0.1 TH/MM3 (0-0.2) CBC Comment DIFF FINAL DIFF FINAL Differential Comment Prothrombin Time 10.4 SEC (9.8-11.6) Prothromb Time International Ratio 1.0 RATIO Activated Partial Thromboplast Time 24.7 SEC (24.3-30.1) Blood Urea Nitrogen 11 MG/DL (7-18) 12 MG/DL (7-18) Creatinine 0.76 MG/DL (0.60-1.30) 0.91 MG/DL (0.60-1.30) Random Glucose 88 MG/DL (74-106) 95 MG/DL (74-106) Total Protein 7.3 GM/DL (6.4-8.2) Albumin 3.8 GM/DL (3.4-5.0) Calcium Level 8.3 MG/DL (8.5-10.1) 8.4 MG/DL (8.5-10.1) Alkaline Phosphatase 64 U/L (45-117) Aspartate Amino Transf (AST/SGOT) 23 U/L (15-37) Alanine Aminotransferase (ALT/SGPT) 37 U/L (12-78) Total Bilirubin 1.0 MG/DL (0.2-1.0) Sodium Level 137 MEQ/L (136-145) 138 MEQ/L (136-145) Potassium Level 3.9 MEQ/L (3.5-5.1) 3.9 MEQ/L (3.5-5.1) Chloride Level 105 MEQ/L (98-107) 103 MEQ/L (98-107) Carbon Dioxide Level 25.5 MEQ/L (21.0-32.0) 29.9 MEQ/L (21.0-32.0) Anion Gap 7 MEQ/L (5-15) 5 MEQ/L (5-15) Estimat Glomerular Filtration Rate 105 ML/MIN (>89) 85 ML/MIN (>89) Total Creatine Kinase 185 U/L (39-308) Creatine Kinase MB 3.7 NG/ML (0.5-3.6) Troponin I LESS THAN 0.02 NG/ML B-Type Natriuretic Peptide 65 PG/ML (0-100) Assessment and Plan Problem List: (1) Hypertensive emergency ICD Codes: I16.1 - Hypertensive emergency Status: Acute (2) Hypertensive encephalopathy ICD Codes: I67.4 - Hypertensive encephalopathy Status: Acute (3) Newly recognized heart murmur ICD Codes: R01.1 - Cardiac murmur, unspecified Status: Acute (4) Uncontrolled hypertension ICD Codes: I10 - Essential (primary) hypertension Status: Acute Assessment and Plan 1) Mr. Cornejo presented with hypertensive urgency with a systolic bloodpressure of 230. This is most likely due to underlying long-term hypertension but also his use of ibuprofen. 2) I have asked him to avoid all NSAIDs due to his overall hypertension. 3) Will check a 2-D echo to look at his overall left ventricular function, cardiac structure and possible valvulopathies. 4) Agree with starting him on Norvasc and losartan, adding HCTZ 5) Will continue to titrate medicines but I did discuss with him that he needs to find either a primary care physician or bag adjuster, outpatient to further titrate meds outpatient for the long-term blood pressure goals. Nate Schneider DO Oct 04, 2017 11:57
--- NOTE | 2017-10-04 14:57 | ECHRPT ---
Indication: NEW 2/6 SYSTOLIC EJECTION MURMUR CONCLUSIONS Normal left ventricular size. Mild concentric left ventricular hypertrophy. The left ventricular systolic function is normal with an estimated ejection fraction in the range of 55-60%. Mitral annular calcification is present. Trace mitral valve regurgitation. Aortic valve sclerosis is present. Mild thickening of the aortic valve leaflets. Mild aortic stenosis. BP: / HR: Rhythm: MEASUREMENTS (Male / Female) Normal Values Technical Quality:Good 2D ECHO LV Diastolic Diameter PLAX 4.4 cm 4.2 - 5.9 / 3.9 - 5.3 cm LV Systolic Diameter PLAX 3.2 cm IVS Diastolic Thickness 1.4 cm 0.6 - 1.0 / 0.6 - 0.9 cm LVPW Diastolic Thickness 1.1 cm 0.6 - 1.0 / 0.6 - 0.9 cm LV Relative Wall Thickness 0.6 LVOT Diameter 1.9 cm LA Systolic Diameter LX 3.9 cm 3.0 - 4.0 / 2.7 - 3.8 cm DOPPLER AV Peak Velocity 273.8 cm/s AV Peak Gradient 30.0 mmHg AV Mean Gradient 16.3 mmHg AV Velocity Time Integral 63.3 cm Mitral E Point Velocity 75.0 cm/s Mitral A Point Velocity 82.9 cm/s Mitral E to A Ratio 0.9 TR Peak Velocity 213.0 cm/s TR Peak Gradient 18.1 mmHg Right Atrial Pressure 10.0 mmHg Pulmonary Artery Systolic Pressu 28.1 mmHg Right Ventricular Systolic Press 28.1 mmHg FINDINGS LEFT VENTRICLE Normal left ventricular size. Mild concentric left ventricular hypertrophy. The left ventricular systolic function is normal with an estimated ejection fraction in the range of 55-60%. RIGHT VENTRICLE Normal right ventricular size and systolic function. LEFT ATRIUM The left atrial size is normal. RIGHT ATRIUM The right atrial size is normal. ATRIAL SEPTUM Normal atrial septal thickness without atrial level shunting by limited color doppler interrogation. AORTA The aortic root and proximal ascending aorta are normal in size on limited imaging. MITRAL VALVE Mitral annular calcification is present. Trace mitral valve regurgitation. AORTIC VALVE Aortic valve sclerosis is present. Mild thickening of the aortic valve leaflets. Aortic valve mean gradient is 19 mmHg. TRICUSPID VALVE Structurally normal tricuspid valve. No tricuspid valve stenosis or regurgitation. PULMONARY VALVE No pulmonary valve regurgitation or stenosis. VESSELS The inferior vena cava is normal in size. PERICARDIUM No pericardial effusion. Matilde Walsh MD, FACC (Electronically Signed) Final Date:04 October 2017 14:56
[2017-10-04] MEDS ORDERED: AMLO5TAB2 PO (15:32)
[2017-10-04] MEDS ORDERED: COZA50TA PO (15:32)
[2017-10-04] MEDS ORDERED: HYDR12.57 PO (15:32)
--- NOTE | 2017-10-04 15:39 | HHI.DS ---
Discharge Summary Admission Date Oct 03, 2017 at 00:48 Discharge Date: Oct 04, 2017 Admitting Diagnosis Hypertensive encephalopathy, new cardiac murmur, Dyspnea on exertion (1) Hypertensive emergency ICD Code: I16.1 - Hypertensive emergency Status: Acute (2) Uncontrolled hypertension ICD Code: I10 - Essential (primary) hypertension Status: Acute (3) Newly recognized heart murmur ICD Code: R01.1 - Cardiac murmur, unspecified Status: Acute Procedures No invasive procedures. Brief History - From Admission 62M with a history of HTN presented to the ER after onset of intractable headaches at home. In the ER he had SBP of 233 on admission. As BP improved, so did his headaches. He denies any previous episodes of extremely high BP, but does admit he has not followed up with an MD for the past 5+ years, and he admits he had some sausage links prior to this episode. He has a heart murmur that he was unaware of, but denies any chest pain or dyspnea, denies any history of ankle swelling. CBC/BMP: 10/03/17 0716 10/03/17 0716 Significant Findings Laboratory Tests Test 10/02/17 21:40 10/03/17 07:16 10/04/17 12:14 Neutrophils (%) (Auto) 70.2 % (16.0-70.0) Monocytes (%) (Auto) 8.1 % (0.0-8.0) 10.1 % (0.0-8.0) Calcium Level 8.3 MG/DL (8.5-10.1) 8.4 MG/DL (8.5-10.1) Creatine Kinase MB 3.7 NG/ML (0.5-3.6) Troponin I LESS THAN 0.02 NG/ML Estimat Glomerular Filtration Rate 85 ML/MIN (>89) Urine Opiates Screen POS (NEG) Imaging Last Impressions Chest X-Ray 10/03/17 0039 Signed Impressions: Service Date/Time: Tuesday, October 03, 2017 00:49 - CONCLUSION: No acute disease. Mor Arevalo MD Head CT 10/02/172139 Signed Impressions: Service Date/Time: Monday, October 02, 2017 23:33 - CONCLUSION: No acute disease. Mor Arevalo MD Hospital Course Patient admitted with hypertensive emergency, systolic blood pressures in the 230s. Blood pressure improved with addition of medication. Echocardiogram was ordered and shows mild aortic stenosis. Cardiology consulted. Nifedipine, losartan, HIDA chlorothiazide will be added. Follow up cardiology as outpatient. Patient will follow with primary care. For problem-based summary for most recent progress note, please see below. //Hypertensive Emergency - Headache improved after SBP of 233 brought down in the ER - Today his BP is hovering around 170 on Amlodipine and prn clonidine - Add Losartan 50mg daily - Consult cardiology to rule out cardiac compensatory causes of this elevation = 10/04. Discussed with cardiology. Echocardiogram with mild stenosis. Follow -up with cardiology as outpatient. Have added hydrochlorothiazide to current regimen. We'll discharge on lower dose of amlodipine assist medication take some time to become therapeutic and patient already with acceptable blood pressure. //Uncontrolled Hypertension - So far not responding well to Amlodipine and clonidine -hctz added. //New Heart Murmur - ECHO ordered - Cardiology consult = 10/04. Echocardiogram with mild aortic stenosis. Follow with cardiology as outpatient. Afterload reduction. DVT Prophylaxis - Lovenox Code Status Full Code Pt Condition on Discharge: Good Discharge Disposition: Discharge Home Discharge Time: > 30 minutes Discharge Instructions DIET: Follow Instructions for: Heart Healthy Diet Activities you can perform: Regular-No Restrictions Follow up Referrals: Cardiology with Nate Schneider DO PCP Follow-up - 1 Week with [facility] New Medications: Amlodipine (Amlodipine) 5 Mg Tab 5 MG PO DAILY for Blood Pressure Management, #30 TAB 0 Refills Hydrochlorothiazide (Hydrochlorothiazide) 12.5 Mg Cap 12.5 MG PO DAILY for Blood Pressure Management for 30 Days, #30 CAP Losartan (Cozaar) 50 Mg Tab 50 MG PO DAILY for Blood Pressure Management for 30 Days, #30 TAB Shaji Kim MD Oct 04, 2017 15:39
[2017-10-05] MEDS ORDERED: HYDROCHLOROTHIAZIDE 12.5 MG CAP PO SCH (09:00)
== END 2017-10-04 17:24 | disposition home or self-care (01) | DRG 305 ==
LOC: NEPC 20:35 → NEDA 10-03 00:48 → N05A 10-03 04:31
PROVIDERS: ADMIT Internal Medicine; ATTEND Internal Medicine
DX: I16.1 Hypertensive emergency (principal); I67.4 Hypertensive encephalopathy; I10 Essential (primary) hypertension; R06.09 Other forms of dyspnea; I35.0 Nonrheumatic aortic (valve) stenosis; N52.9 Male erectile dysfunction, unspecified; Z87.891 Personal history of nicotine dependence
CPT/HCPCS: 70450; 71010; 80048; 80053; 80307; 82550; 82552; 83880; 84484; 85025; 85610; 85730; 93005; 93306; 96374; J1650; J2270; J2405; J7040